=== PATIENT | female | born 1995 | race Caucasian/White ===

== ENCOUNTER → 2017-05-29 12:26 | Outpatient (CLI) | payer OTHER, SELFPAY ==
[2017-05-29 13:51] LABS: HCG Qualitative, Serum Positive (Negative)
== END ==
PROVIDERS: PCP Family Medicine; Visit Provider Nurse Practitioner Obstetrics & Gynecology
DX: Z32.00 Encounter for pregnancy test, result unknown (principal)
CPT/HCPCS: 84703

== ENCOUNTER → 2017-06-05 15:19 | Outpatient (CLI) | payer OTHER, SELFPAY ==
[2017-06-05 15:42] LABS: Basophils % 0.4 % (0.1-2.0); Eosinophils # 0.2 K/mm3 (0.0-0.4); Eosinophils % 1.8 % (0.1-12.0); Hematocrit 37.7 % (37.0-47.0); Hemoglobin 12.5 g/dL (12.2-16.2); Lymphocytes # 2.1 K/mm3 (0.7-4.5); Lymphocytes % 23.4 K/mm3 (10-50); Mean Corpuscular Hemoglobin 28.2 pg (27.0-31.2); Mean Corpuscular Volume 85.4 fl (81-99); Mean Platelet Volume 7.5 fl (7.4-10.4); Monocytes # 0.4 K/mm3 (0.1-1.0); Monocytes % 4.7 % (1.7-9.3); Neutrophils # 6.3 K/mm3 (1.8-7.8); Neutrophils % 69.7 % (37.0-80.0); Platelet Count 286 K/mm3 (142-424); Red Blood Count 4.41 M/mm3 (4.20-5.40); Red Cell Distribution Width 12.6 % (11.5-17.5)
[2017-06-07 09:20] LABS: HIV Screen 4th Generation wRfx Non Reactive (Non Reactive)
[2017-06-09 12:02] LABS: Hepatitis B Surface Antigen Negative (Negative); Hepatitis C Antibody <0.1 s/co ratio (0.0-0.9); Rapid Plasma Reagin Ab Titer Non Reactive (NonRea<1:1); Rubella Antibodies, IgG 4.17 index (Immune >0.99)
== END ==
PROVIDERS: PCP Family Medicine; Visit Provider Nurse Practitioner Obstetrics & Gynecology
DX: Z34.90 Encounter for supervision of normal pregnancy, unspecified, unspecified trimester (principal)
CPT/HCPCS: 36415; 85025; 86592; 86703; 86762; 86850; 87340; 87380; G0432

== ENCOUNTER → 2017-06-13 10:18 | Outpatient (CLI) | payer OTHER, SELFPAY ==
--- NOTE | 2017-06-13 10:23 | US_ITS ---
US OB transvaginal HISTORY: ITS.REASON: US OB- Dates ORDERING PHYSICIAN: Sheldon Gill MD PATIENT AGE: 22 years COMPARISON: None FINDINGS: There is an intrauterine gestational sac present. A yolk sac is present. A definite pole is not identified. Cannot confirm viability at this time. Follow-up recommended as well as correlation with serial beta hCGs. There is a curvilinear area of decreased echogenicity along the left aspect of the uterus and could be due to an area of subchorionic bleed. There is a 2 cm left corpus luteum cyst and there are small follicles of the right ovary. IMPRESSION: 1. Intrauterine gestational sac with yolk sac. No obvious pole. This may be too early to see a pole however, cannot confirm viability. Recommend follow-up ultrasound as well as serial beta hCGs. 2. Possible small area of subchorionic bleed along the left aspect of the uterus. Follow-up recommended. An additional abnormal appearing gestational sac is also a consideration.
== END ==
PROVIDERS: PCP Family Medicine; Visit Provider Nurse Practitioner Obstetrics & Gynecology
DX: O26.841 Uterine size-date discrepancy, first trimester (principal)
CPT/HCPCS: 76830

== ENCOUNTER → 2017-06-26 13:19 | Outpatient (CLI) | payer OTHER, SELFPAY ==
--- NOTE | 2017-06-26 13:22 | US_ITS ---
US OB transvaginal HISTORY: ITS.REASON: Repeat US for Dates ORDERING PHYSICIAN: Sheldon Gill MD PATIENT AGE: 22 years COMPARISON: None FINDINGS: An intrauterine gestational sac is present with a pole with a crown-rump length of 0.98cm correlating to gestational age of 7w1d. heart tones are present with an FHR of 146 bpm's. Yolk sac is noted. There is a 2 cm left corpus luteum cyst. IMPRESSION: Live intrauterine gestation at 7 weeks 1 day. Estimated due date by ultrasound is 02/11/2018. Previously noted crescentic area of decreased echogenicity along the lower uterine segment is not demonstrated on today's exam
== END ==
PROVIDERS: PCP Family Medicine; Visit Provider Nurse Practitioner Obstetrics & Gynecology
DX: O26.841 Uterine size-date discrepancy, first trimester (principal)
CPT/HCPCS: 76830

== ENCOUNTER → 2017-09-22 13:00 | Outpatient (CLI) | payer OTHER, SELFPAY ==
--- NOTE | 2017-09-22 13:01 | US_ITS ---
US OB /maternal detail: INDICATION: ITS.REASON: US OB Complete ORDERING PHYSICIAN: Sheldon Gill MD PATIENT AGE: 22 years TECHNIQUE: ultrasound transabdominal scanning. COMPARISON: No previous relevant studies. FINDINGS: Single viable intrauterine gestation. Cephalic position. Placenta: Anterior and fundal placenta grade 1.. There is increased echogenicity along the posterior aspect of the uterine wall anteriorly may be related to [place] contraction versus accessory lobe of the placenta There is average amount fluid. The cervix appears satisfactory. Closed and measuring 4 cm in length. Complete survey performed and was unremarkable on the submitted images as in PACS. No discrete anomalies identified on survey imaging by technologist. Active fetus. Three-vessel cord with satisfactory umbilical cord insertion. 4- chamber heart noted. Survey of brain & ventricles unremarkable. Face and neck survey unremarkable. Diaphragm and chest views unremarkable. Abdomen: Both kidneys noted and unremarkable. Stomach noted and satisfactory. Spine: Survey of the spine satisfactory with no anomalies identified nor imaged. Both arms and legs noted. Amniotic Fluid: Adequate. Maternal adnexa: No significant findings. Measurements: Average ultrasound age 20w1d. Gestational Age 19w5d. Estimated due date by ultrasound age 1002/08/2018. Estimated weight 344 grams. 78 percentile based on LMP BPD = 20w0d OFD = 20w4d HC = 19w4d AC = 20w4d FL = 20w3d Heart Rate = 152 bpm Cerebellum = 19w6d Humerus = HC/AC is 1.11 (1.09-1.26). CI is 76% (70-86%). FL/BPD is 72%. FL/AC is 22%. IMPRESSION: Single live intrauterine gestation with an average ultrasound age of 20 weeks and 1 day in cephalic presentation. heart and body motion noted. No obvious anomalies. All parameters correlate Please see above for detail.
== END ==
PROVIDERS: PCP Family Medicine; Visit Provider Nurse Practitioner Obstetrics & Gynecology
DX: Z36.0 Encounter for antenatal screening for chromosomal anomalies (principal)
CPT/HCPCS: 76811

== ENCOUNTER 2018-01-02 18:46 | Outpatient (CLI) | payer OTHER, SELFPAY ==
[2018-01-02 19:40] VITALS: BP 126/62; PULSE 108; RESP 16; TEMP 36.9; O2SAT 100; BMI 34.7
[2018-01-02 19:45] LABS: Microscopic, Urine URINE MICROSCOPIC (MICROSCOPIC)
[2018-01-02 19:48] LABS: Appearance,Urine CLEAR (Clear); Bilirubin,Urine Negative (Negative); Blood, Urine Negative (Negative); Color,Urine DK YELLOW (Yellow); Glucose,Urine (UA) Negative (Negative); Ketones,Urine 1+ (Negative); Leukocyte Esterase,Urine 1+ (Negative); Nitrate,Urine Negative (Negative); Protein,Urine TRACE (Negative); Specific Gravity, Urine >= 1.030 (1.005-1.030); Urobilinogen,Urine 0.2 EU/dl (0.2)
[2018-01-02 19:56] LABS: Bacteria,Urine 2+ /lpf; Mucus,Urine 4+ /lpf; Squamous Epithelial Cell,Urine TNTC #/hpf (0-5); WBC,Urine 20-50 #/hpf (0-3)
[2018-01-02 20:45] LABS: Fetal Fibronectin (Rapid) Negative (Negative)
== END 2018-01-02 22:10 | disposition home or self-care (01) ==
LOC: OBOUT 18:49 → OB 18:50
PROVIDERS: PCP Nurse Practitioner Obstetrics & Gynecology; Visit Provider Obstetrics & Gynecology
DX: O26.893 Other specified pregnancy related conditions, third trimester (principal); Z3A.34 34 weeks gestation of pregnancy; R10.9 Unspecified abdominal pain; R42 Dizziness and giddiness
CPT/HCPCS: 59025; 81001; 82731; 87086; 96360; 96372

== ENCOUNTER → 2018-01-08 16:45 | Outpatient (REF) | payer OTHER, SELFPAY | LOC: LAB 16:45 | PROVIDERS: Visit Provider Nurse Practitioner Obstetrics & Gynecology | DX: Z34.90 Encounter for supervision of normal pregnancy, unspecified, unspecified trimester (principal) | CPT/HCPCS: 86403 ==

== ENCOUNTER 2018-01-12 08:11 | Outpatient (CLI) | payer OTHER, SELFPAY ==
--- NOTE | 2018-01-12 08:14 | US_ITS ---
US OB biophysical profile: Umbilical artery Doppler with SD ratio Indication: ITS.REASON: US OB BPP and GROWTH for SGA ORDERING PHYSICIAN: Sheldon Gill MD PATIENT AGE: 22 years FINDINGS: There is a single live fetus which is in the cephalic presentation. heart rate is 1 43 bpm The following parameters are obtained: Average ultrasound age is 36w3d. Estimated due date by ultrasound is 02/06/2018. Estimated weight is 2826 grams. This is 59th percentile. BPD: 37w1d OFD: 37w4d HC: 36w3d AC: 35w3d FL: 36w5d heart rate: 143 bpm. HC/AC: 1.02 (0.93-1.11) Cephalic index: 81% (70-96%) FL/BPD: 78% (71-87%) FL/AC: 23% (20-24%) Amniotic fluid index: 12 cm Qualitative AFV: 2 breathing movements: 2 Gross body movements: 2 Tone: 2 Biophysical profile score: 8/8 Doppler evaluation of the umbilical artery: SD ratio: 2.7 Resistive index: 0.63 No obvious anomalies evident. Placenta: Grade 1 Cervix: Appears closed IMPRESSION: Live intrauterine gestation which is in cephalic presentation with an average ultrasound age of 36 weeks 3 days. All parameters correlate. No obvious anomalies. Estimated due date by ultrasound is 02/06/2018. Estimated weight is 2826 g which is 59th percentile based on the established due date of 02/11/2018. Biophysical profile is 8 of 8. Unremarkable Doppler evaluation of the umbilical artery.
[2018-01-12 09:32] VITALS: BMI 35.2
[2018-01-12 09:35] VITALS: BP 133/80; PULSE 105; RESP 20; TEMP 36.7; O2SAT 100; BMI 35.2
[2018-01-12 09:39] LABS: Microscopic, Urine URINE MICROSCOPIC (MICROSCOPIC)
[2018-01-12 09:41] LABS: Appearance,Urine CLEAR (Clear); Bilirubin,Urine Negative (Negative); Blood, Urine Negative (Negative); Color,Urine YELLOW (Yellow); Glucose,Urine (UA) Negative (Negative); Ketones,Urine 2+ (Negative); Leukocyte Esterase,Urine 2+ (Negative); Nitrate,Urine Negative (Negative); Protein,Urine Negative (Negative); Specific Gravity, Urine 1.015 (1.005-1.030); Urobilinogen,Urine 0.2 EU/dl (0.2)
[2018-01-12 09:59] LABS: Bacteria,Urine 1+ /lpf
--- NOTE | 2018-01-12 10:36 | P.PN_ITS ---
Internal Medicine - PN: Subj *Date: 01/12/18 *Time: 10:34 Interval history: She is a 22-year-old 3 para 2 who is 35+ weeks gestational age. She was having an ultrasound and it was seen at the time of her ultrasound that she is having a few contractions. As result that she was sent to labor and delivery for nonstress test. She is having contractions about every 6 minutes. They are mild and she only feels mild tightening. Her cervix has remained unchanged and is 2 cm 50% and station -3. The nonstress test is reactive. We will plan to give her a 1 L bolus of IV fluids. If her contractions settle then we will send her on her way home. She has an appointment with me gregoria myers Exam Vital signs and Labs for Last 24 Hours: Temp Pulse Resp BP Pulse Ox 98.0 F 105 H 20 133/80 100 01/12/18 09:35 01/12/18 09:35 01/12/18 09:35 01/12/18 09:35 01/12/18 09:35 Laboratory Results - last 24 hr 01/12/18 09:30: Urine Color Yellow, Urine Appearance Clear, Urine pH 6.0, Ur Specific [place] 1.015, Urine Protein Negative, Urine Glucose (UA) Negative, Urine Ketones 2+, Urine Blood Negative, Urine Nitrate Negative, Urine Bilirubin Negative, Urine Urobilinogen 0.2, Ur Leukocyte Esterase 2+ A, Urine RBC None, Urine WBC 10-20, Ur Squamous Epith Cells 10-20, Urine Bacteria 1+ I & O for Last 24 hours: Intake & Output 01/09/18 01/10/18 01/11/18 01/12/18 11:59 11:59 11:59 11:59 Weight 192 lb 4 oz - Constitutional no acute distress - *Routine HEENT Exam Head: Present: normocephalic Eye: Present: EOMI, PERRL ENT: Present: mucous membranes moist Assessment and Plan (1) False labor before 37 completed weeks of gestation Current visit: Yes Status: Acute Category: Medical Code(s): O47.00 - False labor before 37 completed weeks of gestation, unspecified trimester - Assessment and plan all Dx Assessment and Plan for all problems:: We will continue with observation and give her a liter of fluid. If her contractions settled we will send her on her way home.
== END 2018-01-12 11:20 | disposition home or self-care (01) ==
LOC: RAD 09:20 → OB 09:21
PROVIDERS: PCP Family Medicine; Visit Provider Nurse Practitioner Obstetrics & Gynecology
DX: O36.5990 Maternal care for other known or suspected poor fetal growth, unspecified trimester, not applicable or unspecified (principal)
CPT/HCPCS: 59025; 76819; 81001; 87086; 96360

== ENCOUNTER 2018-01-27 18:19 | Inpatient (IN) ==
[2018-01-27 18:44] VITALS: BP 125/85
[2018-01-27 18:56] LABS: Microscopic, Urine URINE MICROSCOPIC (MICROSCOPIC)
[2018-01-27 19:00] LABS: Appearance,Urine CLEAR (Clear); Bilirubin,Urine Negative (Negative); Blood, Urine Negative (Negative); Color,Urine YELLOW (Yellow); Glucose,Urine (UA) Negative (Negative); Ketones,Urine 2+ (Negative); Leukocyte Esterase,Urine Negative (Negative); PH,Urine 7.5 (5.0-8.5); Protein,Urine TRACE (Negative); Specific Gravity, Urine 1.025 (1.005-1.030)
[2018-01-27 19:02] LABS: Mucus,Urine 4+ /lpf
--- NOTE | 2018-01-27 19:58 | History & Physical Report ---
OB - H&P: HPI Antepartum - History of Present Illness Chief complaint: Contractions History of present illness: She is a 22-year-old 3 para 2 at 38+ weeks gestational age. She came in in active labor having regular contractions. She was found to be 4-5 cm dilated with a bulging bag of water. She thought she had ruptured her membranes but this was negative. As result of the regular contractions and the fact that she is 5 cm we will go ahead and admit her for delivery. - History of Present Criteria for establishing EDC:: LMP confirmed by 1st trimester US care: good care Ultrasounds: normal 1st trimester US, normal mid trimester US Obstetrical complications: none Medical complications: none [facility] History I have reviewed the patient's past medical history: Yes Medical History: Denies:: Anxiety, Asthma, Cancer, Depression, Diabetes Mellitus Type 1, Narcisa betes Mellitus Type 2, Hypertension, MRSA Other Surgeries: No: Amputation: No Fractures: No - *Social History Smoking Status: Never smoker Alcohol Intake: never Substance Use Type: denies use - Psychiatric History Pschychiatric History:: Denies:: Anxiety, Depression *Family Hx:: No significant family history Para: 2 Review of Systems - Review of Systems Review of systems:: pertinent systems reviewed and negative unless documented below Meds Home Medications Medication Instructions Recorded Confirmed Type 1 tab PO QHS 06/05/17 01/27/18 History vitamin,calcium,opnynmpx-sirg-ihuuq acid tablet ferrous sulfate 325 mg (65 mg 325 mg PO DAILY 11/23/17 01/27/18 History iron) tablet,delayed release Allergies Allergy/AdvReac Type Severity Reaction Status Date / Time No Known Allergies Allergy Verified 01/24/18 16:40 OB - H&P: Exam - Physical Exam Vital signs: Temp Pulse Resp BP Pulse Ox 98.4 F 111 H 20 125/85 100 01/27/18 18:40 01/27/18 18:40 01/27/18 18:40 01/27/18 18:40 01/27/18 18:40 - Constitutional no acute distress - Routine HEENT Exam Head: Present: normocephalic Eye: Present: EOMI, PERRL ENT: Present: mucous membranes moist - Routine Neck Exam Present: supple, full ROM - Routine Respiratory Exam Absent: accessory muscle use (good air entry bilaterally), respiratory distress, wheezes, crackles - Routine Cardiovascular Exam Present: RRR. Absent: murmur - Routine Abdominal Exam Present: soft, normoactive bowel sounds. Absent: tenderness, distended, guarding - Routine Rectal Exam Patient deferred: visual exam, digital exam - Routine Exam Patient deferred: external exam, groin exam, perineal exam - Routine Extremities Exam Present: full ROM. Absent: cyanosis, edema - Routine Skin Exam Present: intact. Absent: cyanosis - Routine Neurological Exam Present: alert, oriented X3 - Routine Psychiatric Exam Present: normal affect OB - Results - Labs Labs: Urine 01/27/18 Range/Units 18:30 Urine Color Yellow (Yellow) Urine Appearance Clear (Clear) Urine pH 7.5 (5.0-8.5) Ur Specific [place] 1.025 (1.005-1.030) Urine Protein Trace (Negative) Urine Glucose (UA) Negative (Negative) OB - A/P Antepartum (1) Normal delivery at term Current visit: Yes Status: Acute - Additional Plan Planning to breastfeed?: Yes Plan: expectant management Additional Information:: I have ruptured her membranes and inserted an IUPC. She is 5 cm dilated station -2 and 80% effaced. There is clear copious fluid. Stress test is reactive. She is having contractions every 2 minutes.
[2018-01-27 20:01] LABS: Basophils % 0.2 % (0.1-2.0); Eosinophils # 0.1 K/mm3 (0.0-0.4); Eosinophils % 0.8 % (0.1-12.0); Hematocrit 34.5 % (37.0-47.0); Hemoglobin 11.2 g/dL (12.2-16.2); Lymphocytes % 20.4 K/mm3 (10-50); Mean Corpuscular HGB Conc 32.3 g/dL (31.8-35.4); Mean Corpuscular Hemoglobin 27.9 pg (27.0-31.2); Mean Corpuscular Volume 86.3 fl (81-99); Monocytes # 0.6 K/mm3 (0.1-1.0); Monocytes % 5.8 % (1.7-9.3); Neutrophils # 7.1 K/mm3 (1.8-7.8); Neutrophils % 72.8 % (37.0-80.0); Platelet Count 234 K/mm3 (142-424); Red Cell Distribution Width 13.4 % (11.5-17.5); White Blood Count 9.8 K/mm3 (4.5-13.0)
--- NOTE | 2018-01-27 23:07 | Progress Note ---
[facility] Anesthesia Checklist - Patient Identification Patient Identification: Arm Band, Verbal (Name & ) - Structural Data Admitted From: Inpatient Planned Operative Procedure/s: labour epidural Consent for Planned Operative Procedure(s) Verified: Yes Verified Documents: Surgical Consent, History and Physical - Additional verifications Patient : Yes Anesthesia Reactions: No Hx Blood Transfusions: No Blood Transfusion Reaction: No Cephalosporin Allergy: No Previous Colonoscopy: No - Cardiovascular Assessment Heart Sounds: S1 & S2 Pulse Strength: Baseline Pulse Rhythm: Regular Peripheral Edema: No - Airway Assessment C-Spine Mobility Assessed: Yes TMJ Mobility Assessed: Yes Dentition: Good Dentition - Neurological Assessment Level of Consciousness: Awake, Alert, Appropriate Hx Seizures: No Numbness or tingling in extremities: No - Anesthesia Plan Anesthesia Risk discussed: Yes Anesthesia Plan: Verified ASA Class: II Anesthesia Type: Epidural [facility] History I have reviewed the patient's past medical history: Yes Medical History: Denies:: Anxiety, Asthma, Cancer, Depression, Diabetes Mellitus Type 1, Diabetes Mellitus Type 2, Hypertension, MRSA Other Surgeries: Yes: No Previous Surgery. No: Amputation: No Fractures: No - *Social History Smoking Status: Never smoker Alcohol Intake: never Substance Use Type: denies use - Psychiatric History Pschychiatric History:: Denies:: Anxiety, Depression *Family Hx:: No significant family history Para: 2
--- NOTE | 2018-01-27 23:23 | Procedure Note ---
- Delivery Note Delivery Date:: 01/27/18 Delivery Time:: 23:10 Anesthesia Type: Epidural Was labor medically induced?: No Infant delivered prior to 39 weeks?: Yes Justification for early elective delivery:: Active Labor Infant Gender: Male at 1 minute: 8 at 5 minutes: 9 AF:: Clear fluid Delivery Procedure:: She is a 22-year-old 3 para 2 who came in in active labor. She was having regular contraction was found to be 4-5 cm dilated. As result of that we elected to rupture her membranes. She progressed under labor epidural to full dilation and delivered spontaneously a live born male child at 11:10 PM in the evening of January 27, 2018. On deliver the head it was noted that there was a loose nuchal cord which was easily reduced. This was followed by the rest of the infant's body atraumatically. The cord was clamped and cut and the was placed on the mother's abdomen for further care. The nurses assigned Apgars of 8 at 1 minute and 9 at 5 minutes. We then obtained cord blood. The baby was vigorous. The patient received IV oxytocin and using gentle traction on the cord and countertraction on the fundus I was able to easily deliver the placenta intact. Had a normal three-vessel cord. There were no perineal or vaginal lacerations. She has AB+ blood, she is rubella immune and was group B streptococcus negative. She plans to breast-feed. Her jewelry jobber is Dr. Villafuerte. Estimated blood loss was approximately 400 cc. Placental Delivery Description: Spontaneous
[2018-01-28 06:35] LABS: Hemoglobin 10.3 g/dL (12.2-16.2)
[2018-01-28 06:44] LABS: Hematocrit 28.8 % (37.0-47.0)
--- NOTE | 2018-01-28 12:04 | Progress Note ---
Internal Medicine - PN: Subj *Date: 01/28/18 *Time: 12:04 Interval history: She continues to do well. She is eating and drinking and ambulating. She is breast-feeding. Her lochia is normal. Exam Vital signs and Labs for Last 24 Hours: Temp Pulse Resp BP Pulse Ox 98.4 F 111 H 20 125/85 100 01/27/18 18:40 10 18:40 01/27/18 18:40 01/27/18 18:40 01/27/18 18:40 Laboratory Results - last 24 hr 01/27/18 18:30: Urine Color Yellow, Urine Appearance Clear, Urine pH 7.5, Ur Specific [place] 1.025, Urine Protein Trace, Urine Glucose (UA) Negative, Urine Ketones 2+, Urine Blood Negative, Urine Nitrate Negative, Urine Bilirubin Negative, Urine Urobilinogen 1.0, Ur Leukocyte Esterase Negative, Urine WBC 3-5, Ur Squamous Epith Cells 5-10, Urine Mucus 4+ 01/27/18 18:30: Membrane Rupture Negative 01/27/18 19:55: WBC 9.8, RBC 4.00 L, Hgb 11.2 L, Hct 34.5 L, MCV 86.3, MCH 27.9, MCHC 32.3, RDW 13.4, Plt Count 234, MPV 9.0, Neut % (Auto) 72.8, Lymph % (Auto) 20.4, [place] % (Auto) 5.8, Eos % (Auto) 0.8, Baso % (Auto) 0.2, Neut # (Auto) 7.1, Lymph # (Auto) 2.0, [place] # (Auto) 0.6, Eos # (Auto) 0.1, Baso # (Auto) 0.0 01/27/18 19:55: Blood Type AB Positive, Antibody Screen Negative 01/28/18 06:03: Hgb 10.3 L, Hct 28.8 L I & O for Last 24 hours: Intake & Output 01/26/18 01/27/18 01/28/18 01/29/18 11:59 11:59 11:59 11:59 Weight 191 lb - Constitutional no acute distress Assessment and Plan (1) Normal delivery at term Current visit: Yes Status: Acute Category: Medical Code(s): O80 - Encounter for full-term uncomplicated delivery - Assessment and plan all Dx Assessment and Plan for all problems:: She continues to do well. We will plan to send her home possibly tomorrow.
--- NOTE | 2018-01-29 09:25 | Discharge Summary ---
General - General Admission date:: 01/27/18 Discharge date: 01/29/18 HPI HPI: She continues to do well. She is eating and drinking and ambulating. She is breast-feeding. Her lochia is normal. Hospital Course Hospital Course: She is a 22-year-old 7 now para 3 aborta 4 who was 38 weeks gestational age. She came in in active labor. She subsequently dressed under labor epidural to full dilation and delivered spontaneously a live born male child at 11:10 PM on the evening of January 27, 2018. Baby had Apgars of 8 at 1 minute and 9 at 5 minutes. She has done well and has remained afebrile throughout her hospitalization. She is eating and drinking and ambulating. She is breast-feeding. She has AB+, she is rubella immune and was group B streptococcus negative. Tax Evaluator is Dr. Villafuerte. She is discharged home to follow-up with me in approximately 2 weeks time. She will continue with her vitamins and iron. She will continue with breast-feeding. Her condition on discharge is stable. Objective Vital signs: Temp Pulse Resp BP Pulse Ox 98.4 F 111 H 20 125/85 100 01/27/18 18:40 01/27/18 18:40 01/27/18 18:40 01/27/18 18:40 01/27/18 18:40 no acute distress DS: Diagnosis - Discharge Diagnosis (1) Normal delivery at term Status: Acute Discharge Plan - Patient Discharge Instructions ACTIVITY: No heavy lifting DIET: continue same diet - Follow up Plan Disposition: Home, Self-[facility] Medications: Home Medications Medication Instructions Recorded Confirmed Type 1 tab PO QHS 06/05/17 01/27/18 History vitamin,calcium,lhitfemk-orga-qyect acid tablet ferrous sulfate 325 mg (65 mg 325 mg PO DAILY 11/23/17 01/27/18 History iron) tablet,delayed release Prescriptions/Medication Reconciliation: Continue vitamin,calcium,xyxpaldb-gots-bdopq acid tablet 1 tab PO QHS No Action ferrous sulfate 325 mg (65 mg iron) tablet,delayed release 325 mg PO DAILY
== END 2018-01-29 15:55 | disposition home or self-care (01) ==
LOC: OBOUT 18:19 → OB 18:21
PROVIDERS: ADMIT Nurse Practitioner Obstetrics & Gynecology; ATTEND Nurse Practitioner Obstetrics & Gynecology

== ENCOUNTER → 2018-10-22 12:19 | Outpatient (CLI) | payer MEDICAID, SELFPAY ==
[2018-10-22 14:02] LABS: HCG,Quantitative 340 mIU/mL
== END ==
PROVIDERS: Visit Provider Nurse Practitioner Obstetrics & Gynecology
DX: Z32.00 Encounter for pregnancy test, result unknown (principal)
CPT/HCPCS: 36415; 84702

== ENCOUNTER → 2018-11-06 16:24 | Outpatient (CLI) | payer MEDICAID, SELFPAY ==
[2018-11-06 16:46] LABS: Basophils % 0.3 % (0.1-2.0); Eosinophils # 0.2 K/mm3 (0.0-0.4); Hematocrit 36.9 % (37.0-47.0); Hemoglobin 11.5 g/dL (12.2-16.2); Lymphocytes # 2.1 K/mm3 (0.7-4.5); Lymphocytes % 21.4 % (10-50); Mean Corpuscular HGB Conc 31.3 g/dL (31.8-35.4); Mean Corpuscular Hemoglobin 26.2 pg (27.0-31.2); Mean Corpuscular Volume 83.7 fl (81-99); Mean Platelet Volume 7.6 fl (7.4-10.4); Monocytes # 0.4 K/mm3 (0.1-1.0); Neutrophils % 72.3 % (37.0-80.0); Platelet Count 277 K/mm3 (142-424); Red Cell Distribution Width 12.6 % (11.5-17.5); White Blood Count 9.6 K/mm3 (4.8-10.8)
[2018-11-08 22:04] LABS: HIV Screen 4th Generation wRfx Non Reactive (Non Reactive); Hepatitis B Surface Antigen Negative (Negative); Hepatitis C Antibody <0.1 s/co ratio (0.0-0.9); Rapid Plasma Reagin Ab Titer Non Reactive (NonRea<1:1); Rubella Antibodies, IgG 3.32 index (Immune >0.99)
== END ==
PROVIDERS: Visit Provider Nurse Practitioner Obstetrics & Gynecology
DX: Z34.90 Encounter for supervision of normal pregnancy, unspecified, unspecified trimester (principal)
CPT/HCPCS: 36415; 85025; 86592; 86703; 86762; 86850; 87340; 87380; G0432

== ENCOUNTER → 2018-11-09 13:38 | Outpatient (CLI) | payer MEDICAID, SELFPAY ==
--- NOTE | 2018-11-09 13:40 | US_ITS ---
US OB transvaginal HISTORY: ITS.REASON: US OB Dates ORDERING PHYSICIAN: Sheldon Gill MD PATIENT AGE: 23 years COMPARISON: None FINDINGS: The uterus is retroverted An intrauterine gestational sac is present with a pole with a crown-rump length of 0.81correlating to gestational age of [id number] heart tones are present with an FHR of 149pm's. Yolk sac is noted. Adnexa: 1.5 cm left ovarian cyst. IMPRESSION: Live intrauterine gestation at 6 weeks 6 days as described above. Estimated due date by Ultrasound is 06/29/2019
== END ==
PROVIDERS: PCP Family Medicine; Visit Provider Nurse Practitioner Obstetrics & Gynecology
DX: O26.841 Uterine size-date discrepancy, first trimester (principal)
CPT/HCPCS: 76817

== ENCOUNTER → 2019-02-14 10:24 | Outpatient (CLI) | payer OTHER, SELFPAY ==
--- NOTE | 2019-02-14 10:25 | US_ITS ---
PROCEDURE: US OB /MATERNAL DETAIL CLINICAL INDICATION: 20 wk + Anatomy Scan-US OB COMPLETE COMPARISON: OBTV US OB transvaginal from 11/09/2018 FINDINGS: Single viable intrauterine gestation. Cephalic position. Placenta: Posteriorplacenta grade 1. There is average amount fluid. The cervix appears satisfactory. Closed and measuring 3 cm in length. Complete survey performed and was unremarkable on the submitted images as in PACS. No discrete anomalies identified on survey imaging by technologist. Active fetus. Three-vessel cord with satisfactory umbilical cord insertion. 4- chamber heart noted. Survey of brain & ventricles Unremarkable. Face and neck survey unremarkable. Diaphragm and chest views unremarkable. Abdomen: Both kidneys noted and unremarkable. Stomach noted and satisfactory. Spine: Survey of the spine satisfactory with no anomalies identified nor imaged. Both arms and legs noted. Amniotic Fluid: Adequate. Maternal adnexa: No significant findings. Measurements: Average ultrasound age 20 weeks 5 D. Gestational Age 20 weeks 5 D Estimated due date by ultrasound age 0306/29/2019. Estimated weight 362.3 ggrams. BPD = 21 weeks 1 day OFD = 21 weeks 0 D HC = 20 weeks 2D AC = 21 weeks 0 D FL = 20 weeks 2 D Growth Percentile= 37 percent% Heart Rate = 155 bpm Cerebellum = 19 weeks 5 D Humerus = 20 weeks 5D HC/AC is 1.13 CI is 0.79 FL/BPD is 0.66 FL/AC is 0.21 IMPRESSION: There is a live intrauterine gestation with an average ultrasound age of 20 weeks and 5 days. All parameters correlate with no obvious anomalies. Please see above for detail Dictated by: Elio Chacko MD 02/14/2019 17:51 Electronically signed by Elio Chacko MD in [place] 02/14/2019 17:51
== END ==
PROVIDERS: PCP Family Medicine; Visit Provider Nurse Practitioner Obstetrics & Gynecology
DX: Z36.0 Encounter for antenatal screening for chromosomal anomalies (principal)
CPT/HCPCS: 76811

== ENCOUNTER → 2019-03-28 08:42 | Outpatient (CLI) | payer OTHER, SELFPAY ==
[2019-03-28 09:15] LABS: Glucose,Fasting 84 mg/dL (60-105)
[2019-03-28 11:09] LABS: Glucose 1 Hour 73 mg/dL (74-106)
== END ==
PROVIDERS: Visit Provider Nurse Practitioner Obstetrics & Gynecology
DX: Z34.90 Encounter for supervision of normal pregnancy, unspecified, unspecified trimester (principal)
CPT/HCPCS: 36415; 82951

== ENCOUNTER → 2019-05-30 16:29 | Outpatient (CLI) | payer OTHER, SELFPAY | PROVIDERS: Visit Provider Nurse Practitioner Obstetrics & Gynecology | DX: Z34.90 Encounter for supervision of normal pregnancy, unspecified, unspecified trimester (principal) | CPT/HCPCS: 86403 ==

== ENCOUNTER 2019-05-31 10:02 | Outpatient (CLI) | payer OTHER, SELFPAY ==
[2019-05-31 10:15] VITALS: RESP 20; TEMP 36.8; BMI 35.9
[2019-05-31 10:39] LABS: Microscopic, Urine URINE MICROSCOPIC (MICROSCOPIC)
[2019-05-31 10:41] LABS: Appearance,Urine CLEAR (Clear); Bilirubin,Urine Negative (Negative); Blood, Urine Negative (Negative); Color,Urine YELLOW (Yellow); Glucose,Urine (UA) Negative (Negative); Ketones,Urine Negative (Negative); Leukocyte Esterase,Urine 2+ (Negative); Nitrate,Urine Negative (Negative); PH,Urine 5.5 (5.0-8.5); Protein,Urine Negative (Negative); Specific Gravity, Urine 1.025 (1.005-1.030); Urobilinogen,Urine 0.2 EU/dl (0.2)
[2019-05-31 10:47] LABS: Amphetamine/Metha Screen,Urine Negative ng/mL (<1000); Barbiturates Screen,Urine Negative ng/mL (<200); Benzodiazepines Screen,Urine Negative ng/mL (<200); Cannabinoid Screen,Urine Negative ng/mL (<50); Cocaine Screen,Urine Negative ng/mL (<300); Methadone Screen,Urine Negative ng/mL (<300); Opiate Screen,Urine Negative ng/mL (<300); Phencyclidine Screen,Urine Negative ng/mL (<25)
[2019-05-31 10:52] LABS: Bacteria,Urine 2+ /lpf; RBC,Urine Occasional #/hpf (0-3)
[2019-05-31 12:41] LABS: Basophils % 0.2 % (0.1-2.0); Eosinophils # 0.1 K/mm3 (0.0-0.4); Eosinophils % 0.5 % (0.1-12.0); Hematocrit 36.3 % (37.0-47.0); Hemoglobin 11.2 g/dL (12.2-16.2); Lymphocytes # 1.6 K/mm3 (0.7-4.5); Mean Corpuscular HGB Conc 30.8 g/dL (31.8-35.4); Mean Corpuscular Hemoglobin 26.4 pg (27.0-31.2); Mean Corpuscular Volume 85.7 fl (81-99); Mean Platelet Volume 9.3 fl (7.4-10.4); Monocytes # 0.4 K/mm3 (0.1-1.0); Monocytes % 3.9 % (1.7-9.3); Neutrophils # 7.6 K/mm3 (1.8-7.8); Neutrophils % 78.4 % (37.0-80.0); Platelet Count 243 K/mm3 (142-424); Red Blood Count 4.23 M/mm3 (4.20-5.40); Red Cell Distribution Width 13.7 % (11.5-17.5); White Blood Count 9.7 K/mm3 (4.8-10.8)
[2019-05-31 13:03] LABS: D-Dimer 667 ng/mL (0-400)
[2019-05-31 13:25] LABS: Activated Partial Thrombo Time 27.5 seconds (23.6-34.0); Fibrinogen 498 mg/dL (204-500); INR 0.95 (0.9-1.1); Prothrombin Time 9.9 seconds (9.4-11.8)
[2019-05-31 13:35] LABS: Alanine Aminotransferase 12 U/L (12-78); Anion Gap 13.8 mEq/L (5-15); Aspartate Amino Transferase 11 U/L (15-37); Blood Urea Nitrogen 11 mg/dL (7-18); Calcium 8.9 mg/dL (8.5-10.1); Carbon Dioxide 23 mmol/L (21.0-32.0); Chloride 104 mmol/L (98-107); Creatinine Clearance Estimated 186 mL/min (50-200); Creatinine,Serum 0.69 mg/dL (0.55-1.02); Estimated Glomerular Filt Rate 106 ml/min (>60); GFR (African American) 129 ML/MIN (>60); Glucose 90 mg/dL (74-106); Potassium 3.8 mmoL/L (3.5-5.1); Sodium 137 mmol/L (136-145); Uric Acid 4.3 mg/dL (2.6-7.2)
== END 2019-05-31 13:05 | disposition home or self-care (01) ==
LOC: OBOUT 10:04 → OB 10:05
PROVIDERS: PCP Family Medicine; Visit Provider Nurse Practitioner Obstetrics & Gynecology
DX: O16.3 Unspecified maternal hypertension, third trimester (principal); Z3A.35 35 weeks gestation of pregnancy; R51 Headache; R42 Dizziness and giddiness
CPT/HCPCS: 59025; 80048; 80305; 81001; 84450; 84460; 84550; 85025; 85378; 85384; 85610; 85730; 87086; G0463

== ENCOUNTER → 2019-06-04 14:16 | Outpatient (CLI) | payer OTHER, SELFPAY ==
--- NOTE | 2019-06-04 14:17 | US_ITS ---
PROCEDURE: US OB FOLLOW UP CLINICAL INDICATION: SGA COMPARISON: US OB /MATERNAL DETAIL from 02/14/2019 FINDINGS: There is a single live fetus present which is in cephalic presentation. heart and body and practice breathing motion noted. The cervix is closed and measures 3.4 cm. Placenta is posterior and grade 2. Amniotic fluid index is normal at 17 cm. Biophysical profile is 8 of 8. Average ultrasound age is 35 weeks and 3 days. Estimated weight is 2652 g which is 25th percentile. All parameters correlate. BPD is 35 weeks 3 days, OFD 35 weeks 3 days, HC 35 weeks 0 days, AC 35 weeks 3 days, FL 35 weeks 3 days IMPRESSION: Live IUP in cephalic presentation at 35 weeks 3 days with an estimated weight 2652 g which is 25th percentile. Normal amniotic fluid index. Biophysical profile 8 of 8 Dictated by: Elio Chacko MD 06/04/2019 17:34 Electronically signed by Elio Chacko MD in [facility] 06/04/2019 17:34
== END ==
PROVIDERS: PCP Family Medicine; Visit Provider Nurse Practitioner Obstetrics & Gynecology
DX: O36.5131 Maternal care for known or suspected placental insufficiency, third trimester, fetus 1 (principal)
CPT/HCPCS: 76816; 76819

== ENCOUNTER 2019-06-06 19:39 | Outpatient (CLI) | payer OTHER, SELFPAY ==
[2019-06-06 19:46] VITALS: BMI 37.3
[2019-06-06 20:08] VITALS: BP 135/87; PULSE 118; RESP 18; TEMP 36.9; O2SAT 98; BMI 37.3
[2019-06-06 20:30] LABS: Microscopic, Urine URINE MICROSCOPIC (MICROSCOPIC)
[2019-06-06 20:37] LABS: Appearance,Urine CLEAR (Clear); Bilirubin,Urine Negative (Negative); Blood, Urine Negative (Negative); Color,Urine YELLOW (Yellow); Glucose,Urine (UA) TRACE (Negative); Ketones,Urine TRACE (Negative); Leukocyte Esterase,Urine Negative (Negative); Nitrate,Urine Negative (Negative); PH,Urine 6.5 (5.0-8.5); Protein,Urine TRACE (Negative); Specific Gravity, Urine >= 1.030 (1.005-1.030); Urobilinogen,Urine 0.2 EU/dl (0.2)
[2019-06-06 20:45] LABS: Amphetamine/Metha Screen,Urine Negative ng/mL (<1000); Barbiturates Screen,Urine Negative ng/mL (<200); Benzodiazepines Screen,Urine Negative ng/mL (<200); Cannabinoid Screen,Urine Negative ng/mL (<50); Cocaine Screen,Urine Negative ng/mL (<300); Methadone Screen,Urine Negative ng/mL (<300); Opiate Screen,Urine Negative ng/mL (<300); Phencyclidine Screen,Urine Negative ng/mL (<25)
[2019-06-06 20:47] LABS: Fetal Membrane Rupture (Rapid) Negative (Negative)
[2019-06-06 20:48] LABS: Bacteria,Urine Trace /lpf; WBC,Urine Occasional #/hpf (0-3)
== END 2019-06-06 22:40 | disposition home or self-care (01) ==
LOC: OBOUT 19:42 → OB 19:43
PROVIDERS: PCP Nurse Practitioner Obstetrics & Gynecology; Visit Provider Obstetrics & Gynecology
DX: O47.03 False labor before 37 completed weeks of gestation, third trimester (principal); Z3A.36 36 weeks gestation of pregnancy
CPT/HCPCS: 59025; 80305; 81001; 84112; 96365; 96372; G0463

== ENCOUNTER 2019-06-15 22:43 | Inpatient (IN) ==
[2019-06-15 23:01] LABS: Microscopic, Urine URINE MICROSCOPIC (MICROSCOPIC)
[2019-06-15 23:04] LABS: Appearance,Urine SL CLOUDY (Clear); Bilirubin,Urine Negative (Negative); Blood, Urine TRACE-I (Negative); Color,Urine YELLOW (Yellow); Glucose,Urine (UA) Negative (Negative); Ketones,Urine TRACE (Negative); Leukocyte Esterase,Urine Negative (Negative); Protein,Urine TRACE (Negative); Specific Gravity, Urine >= 1.030 (1.005-1.030); Urobilinogen,Urine 0.2 EU/dl (0.2)
[2019-06-15 23:07] LABS: Amorphous Sediment,Urine Trace /lpf; Mucus,Urine 4+ /lpf
[2019-06-15 23:15] LABS: Amphetamine/Metha Screen,Urine Negative ng/ml (<1000); Barbiturates Screen,Urine Negative ng/ml (<200)
[2019-06-15 23:16] LABS: Benzodiazepines Screen,Urine Negative ng/ml (<200); Cannabinoid Screen,Urine Negative ng/ml (<50)
[2019-06-15 23:17] LABS: Cocaine Screen,Urine Negative ng/ml (<300)
[2019-06-15 23:18] LABS: Methadone Screen,Urine Negative ng/ml (<300); Opiate Screen,Urine Negative ng/ml (<300)
[2019-06-15 23:19] LABS: Phencyclidine Screen,Urine Negative ng/ml (<25)
[2019-06-16 00:10] LABS: Basophils % 0.2 % (0.1-2.0); Eosinophils # 0.1 K/mm3 (0.0-0.4); Eosinophils % 0.7 % (0.1-12.0); Hematocrit 35.2 % (37.0-47.0); Hemoglobin 11.4 g/dL (12.2-16.2); Lymphocytes % 19.4 % (10-50); Mean Corpuscular HGB Conc 32.3 g/dL (31.8-35.4); Mean Corpuscular Volume 84.7 fl (81-99); Mean Platelet Volume 9.6 fl (7.4-10.4); Monocytes # 0.5 K/mm3 (0.1-1.0); Monocytes % 4.6 % (1.7-9.3); Neutrophils # 7.6 K/mm3 (1.8-7.8); Neutrophils % 75.2 % (37.0-80.0); Platelet Count 263 K/mm3 (142-424); Red Blood Count 4.16 M/mm3 (4.20-5.40); Red Cell Distribution Width 13.2 % (11.5-17.5); White Blood Count 10.2 K/mm3 (4.8-10.8)
--- NOTE | 2019-06-16 01:44 | Procedure Note ---
- Delivery Note Delivery Date:: 06/16/19 Delivery Time:: 01:18 Anesthesia Type: None Was labor medically induced?: No Infant delivered prior to 39 weeks?: Yes Justification for early elective delivery:: Active Labor at 1 minute: 7 at 5 minutes: 9 Delivery Procedure:: Patient presented with SROM and had rapid progress from 3cm to 8cm She was admitted and had precipitous spontaneous vaginal delivery of liveborn infant over intact perineum, with nursing staff attending delivery Delivery uncomplicated No nuchal cord or shoulder dystocia with delivery taken to warmer immediately after umbilical cord clamped/cut, with standard nursing assessment performed Apgars: 7 & 9 Placenta spontaneously expressed (delivered by MD) and examined; noted to be complete/intact. Vulva, vagina, and cervix inspected; no lacerations present EBL: 300 cc All sponge/needle/instrument counts correct at conclusion of procedure Disposition: Mom/baby stable to recovery in LDRP Placental Delivery Description: Spontaneous
[2019-06-17 07:03] LABS: Hematocrit 30.7 % (37.0-47.0)
--- NOTE | 2019-06-17 09:50 | Progress Note ---
Internal Medicine - PN: Subj *Date: 06/17/19 *Time: 09:49 Interval history: She continues to do well. She is eating and drinking and ambulating. She is breast-feeding. Her lochia is normal. Exam Vital signs and Labs for Last 24 Hours: Temp Pulse Resp BP Pulse Ox 98.8 F 93 H 16 137/80 99 06/16/19 20:10 06/16/19 20:10 06/16/19 20:10 06/16/19 20:10 06/16/19 12:13 Laboratory Results - last 24 hr 06/17/19 06:45: Hgb 10.0 L, Hct 30.7 L I & O for Last 24 hours: Intake & Output 06/14/19 06/15/19 06/16/19 06/17/19 11:59 11:59 11:59 11:59 Weight 208 lb - Constitutional no acute distress - *Routine HEENT Exam Head: Present: normocephalic Eye: Present: EOMI, PERRL ENT: Present: mucous membranes moist Assessment and Plan (1) Normal delivery Current visit: Yes Status: Acute Category: Medical Code(s): O80 - Encounter for full-term uncomplicated delivery - Assessment and plan all Dx Assessment and Plan for all problems:: She is doing very well this morning. We will plan to send her home tomorrow.
--- NOTE | 2019-06-18 08:14 | Discharge Summary ---
General - General Admission date:: 06/16/19 Discharge date: 06/18/19 HPI HPI: She is a 24-year-old 8 now para 4 aborta 4 who was 38 1 weeks gestational age. She ruptured membranes at home and came in in active labor. Hospital Course Hospital Course: She had ruptured her membranes at home and rapidly progressed to full dilation. She delivered spontaneously a liveborn male child at 118 in the morning of June 16, 2019. The baby weighed 6 pounds 9 ounces and was 18-1/2 inches long. He had Apgars of 7 at 1 minute and 9 at 5 minutes. She has done well and has remained afebrile throughout her hospitalization. She is eating and drinking and ambulating. She is breast- feeding. She has AB positive blood, she is rubella immune and was group B streptococcus negative. Her cage maker is Dr. Nj. She is discharged home to follow-up with me in approximately 2 weeks time. She would like a Nexplanon for control at that time. Her condition on discharge is stable and improved. She is just taking ufnm-uxy-ulhtsik analgesics for discomfort. She will continue with her vitamins and iron. Rhogam Administration: Not Indicated Objective Vital signs: Temp Pulse Resp BP Pulse Ox 98.3 F 91 H 17 133/73 100 06/17/19 08:00 06/17/19 08:00 06/17/19 08:00 06/17/19 08:00 06/17/19 08:00 no acute distress DS: Diagnosis - Discharge Diagnosis (1) Normal delivery Status: Acute Discharge Plan - Patient Discharge Instructions ACTIVITY: No heavy lifting DIET: continue same diet Additional Instructions: FOLLOW-UP WITH DR. ROWE ON 07/01/19 AT 11:00 NO HEAVY LIFTING OR STRENUOUS ACTIVITY NOTHING IN VAGINA FOR 6 WEEKS Patient Instructions: Depression, Hemorrhage, [facility] Post Discharge Instructions - Follow up Plan Disposition: Home, Self-Retirement Medications: Home Medications Medication Instructions Recorded Confirmed Type prenat.vits,jing,biy-bhql-vzcty 1 tab PO HS 06/05/17 06/16/19 History Ferrous Sulfate [Ferrous Sulfate 325 mg PO DAILY 06/16/19 06/16/19 History 325mg Tablet] Labetalol HCl 200 mg PO BID 06/16/19 06/16/19 History Prescriptions/Medication Reconciliation: Continued prenat.vits,jing,esq-zanw-zxqrl 1 tab PO HS Ferrous Sulfate [Ferrous Sulfate 325mg Tablet] 325 mg PO DAILY Discontinued Labetalol HCl 200 mg PO BID - Problem Reconciliation Problems Reviewed?: Yes
[2019-06-18 08:16] VITALS: BP 131/86
== END 2019-06-18 10:00 | disposition home or self-care (01) | DRG 807 ==
LOC: OBOUT 22:43 → OB 22:45
PROVIDERS: ADMIT Obstetrics & Gynecology; ATTEND Obstetrics & Gynecology

== ENCOUNTER → 2019-12-12 14:52 | Outpatient (CLI) | payer OTHER, SELFPAY ==
[2019-12-13 15:46] LABS: Covid-19 Nasal PCR Sendout Lex Positive
== END ==
PROVIDERS: PCP Family Medicine; Visit Provider Nurse Practitioner Family
DX: Z20.828 Contact with and (suspected) exposure to other viral communicable diseases (principal); U07.1 COVID-19
CPT/HCPCS: U0004

== ENCOUNTER 2022-05-30 13:01 | Emergency (ER) | payer OTHER, SELFPAY ==
--- NOTE | 2022-05-30 13:45 | HMH.EDGENADL ---
Discharge Plan Disposition Patient Disposition: Home, Self-Care Prescriptions Prescriptions: No Action prenat.vits,jing,vsb-gmjs-vvkhb Tablet 1 tab PO DAILY Qty: 30 11RF duloxetine [Cymbalta] 60 mg capsule,delayed release(DR/EC) 60 mg PO DAILY Qty: 30 1RF Referrals Follow up/Referrals: Pallavi Slater PA [Primary Care Provider] - See instructions Activity Restrictions/Add. Instructions Additional Instructions/Restrictions: Your diagnosis today with acute sinus infection superimposed upon a migraine headache. Your sinus symptoms have been ongoing for 4 days and have no other signs of acute bacterial sinusitis. Which would include prolonged symptoms beyond 1 to 2 weeks ongoing purulent discharge or high fever. If any of these symptoms return or if your headache is severe and unrelenting or any other neurologic signs or symptoms such as altered mental status please return. Otherwise no indication for any antibiotics. You may take Tylenol or ibuprofen as needed but the migraine cocktail that you are given today should allow you to have resolution of your symptoms for several days. Return as needed Clinical Impressions Clinical Impression: Sinus headache, Headache, migraine Discharge ED Provider: hCai Burkett General Adult HPI General Chief complaint: Headache Stated complaint: sinus pressure headaches Time Seen by Provider: 05/30/22 13:45 History of Present Illness HPI narrative: Patient is a 27-year-old female presents with a headache. Patient states for the past several days she has had headache that is frontal in nature also over her left maxillary sinus. Patient denies any preceding URI. Patient denies any other infectious symptoms. States that today when she was crying that seems document of her left nose. Patient denies any meningismus. Patient denies any changes in vision or any other neurologic symptoms. Patient denies any fever. States that this is similar to migraines in the past but a little more severe. States that she has had increasing migraines recently. The only change that she can recall is a removal of her Nexplanon. No sudden component of this headache. No history of any clots. Reassessment 2:39 PM. Patient states her symptoms are completely resolved at this point. Neurologic exam remains normal. Medications have just been administered will allow her fluids to continue we will reassess in another 30 minutes to an hour at which point if she still feeling good we will let her go home. Related Data Previous Rx's Medication Instructions Recorded prenat.vits,jing,sfh-zqqj-fbvrz 1 tab PO DAILY #30 tabs 12/07/21 duloxetine 60 mg capsule,delayed 60 mg PO DAILY #30 caps 05/16/22 release (Cymbalta) Allergies Allergy/AdvReac Type Severity Reaction Status Date / Time No Known Allergies Allergy Verified 05/24/22 10:36 [facility] Disclaimer: The information contained in this section may have been updated after the patient was seen, as this information can be updated by other users. Medical History (Updated 05/30/22 @ 14:55 by Shiv Sadler MD) Acute carpal tunnel syndrome Attention deficit disorder (ADD) in adult Generalized anxiety disorder Surgical History (Updated 05/24/22 @ 10:38 by Yoly Castillo CMA) History of tonsillectomy Family History (Updated 05/24/22 @ 10:39 by Yoly Castillo CMA) Other Alcoholism Cancer Coronary artery disease Diabetes Hypertension Substance abuse Tuberculosis Social History Smoking Status: Never smoker alcohol intake: never substance use type: denies use current occupational status: employed Travel in the last 8 weeks: None number of children: 4 ROS Obtained: Yes All systems reviewed & no additional complaints except as documented Physical Exam General General appearance: alert and in no apparent distress Eye Eye exam: Present normal appearance and PE
[2022-05-30 13:52] VITALS: BP 120/97; PULSE 107; RESP 18; TEMP 37; O2SAT 100; BMI 40.2
--- NOTE | 2022-05-30 13:52 | PC.NURSE ---
1347 DR. AGUILAR AT BEDSIDE
--- NOTE | 2022-05-30 14:17 | PC.NURSE ---
pt reports she is breast feeding, spoke with pharmacy, owen states pt should pump and dump for 24 hours after receiving medications.
--- NOTE | 2022-05-30 14:38 | PC.NURSE ---
DR AGUILAR AT BEDSIDE TO REEVALUATE PT
[2022-05-30 15:00] VITALS: BP 136/74; PULSE 90; RESP 17; TEMP 36.7; O2SAT 99
== END 2022-05-30 15:00 | disposition home or self-care (01) ==
LOC: UTC 13:06 → ER 13:40
PROVIDERS: Emergency Provider Nurse Practitioner Family; PCP Physician Assistant
DX: G43.909 Migraine, unspecified, not intractable, without status migrainosus (principal); F90.9 Attention-deficit hyperactivity disorder, unspecified type; F41.1 Generalized anxiety disorder; G56.00 Carpal tunnel syndrome, unspecified upper limb; Z81.1 Family history of alcohol abuse and dependence; Z80.9 Family history of malignant neoplasm, unspecified; Z82.49 Family history of ischemic heart disease and other diseases of the circulatory system; Z83.3 Family history of diabetes mellitus; Z81.4 Family history of other substance abuse and dependence; Z83.1 Family history of other infectious and parasitic diseases
CPT/HCPCS: 96361; 96374; 96375; 99284

== ENCOUNTER → 2022-09-28 10:45 | Outpatient (CLI) | payer OTHER, SELFPAY ==
[2022-09-28 12:39] LABS: HCG,Quantitative 169 mIU/ml (0-5.42)
[2022-09-29 08:39] LABS: Progesterone 5.1 ng/mL (.)
== END ==
PROVIDERS: PCP Physician Assistant; Visit Provider Nurse Practitioner Obstetrics & Gynecology
DX: N92.6 Irregular menstruation, unspecified (principal); Z32.00 Encounter for pregnancy test, result unknown
CPT/HCPCS: 36415; 84144; 84702

== ENCOUNTER → 2022-10-03 09:50 | Outpatient (CLI) | payer OTHER, SELFPAY ==
[2022-10-03 11:28] LABS: HCG,Quantitative 1539 mIU/ml (0-5.42)
== END ==
PROVIDERS: PCP Physician Assistant; Visit Provider Nurse Practitioner Obstetrics & Gynecology
DX: N92.6 Irregular menstruation, unspecified (principal); Z32.00 Encounter for pregnancy test, result unknown
CPT/HCPCS: 36415; 84702

== ENCOUNTER → 2022-10-17 12:00 | Outpatient (CLI) | payer OTHER, SELFPAY | PROVIDERS: Visit Provider Nurse Practitioner Obstetrics & Gynecology | DX: Z34.91 Encounter for supervision of normal pregnancy, unspecified, first trimester (principal); Z3A.01 Less than 8 weeks gestation of pregnancy | CPT/HCPCS: 87086 ==

== ENCOUNTER → 2022-10-27 10:03 | Outpatient (CLI) | payer OTHER, SELFPAY ==
--- NOTE | 2022-10-27 10:03 | US_ITS ---
PROCEDURE: US OB <= 14 WEEKS FETUS CLINICAL INDICATION: for dates COMPARISON: No exams were available for comparison FINDINGS: From her last menstrual period she is 8weeks 6days. An intrauterine gestational sac is present with a pole with a crown-rump length of 2.02cm correlating to gestational age of 8weeks 5days. heart tones are present with an FHR of 174bpm. Yolk sac is noted. Amnion appears normal. The yolk sac measures 6mm. There is a small subchorionic hemorrhage approximately 1.5 cm in size adjacent to the gestational sac. The right ovary is seen and appears normal. There are several follicles. The left ovary is seen and appears normal. There are several follicles. There is no fluid in the cul-de-sac. IMPRESSION: 1. Viable fetus within the uterine cavity. heart rate activity is seen. 2. Estimated due date by ultrasound is 06/03/2023. This correlates well with her last menstrual period. 3. Both ovaries are seen and appear normal. Dictated by: Sheldon Gill MD 10/27/2022 11:29 Sheldon Gill MD in [place] 10/27/2022 11:29
[2022-10-27 11:40] LABS: Basophils % 0.2 % (0.1-2.0); Eosinophils # 0.2 K/mm3 (0.0-0.4); Eosinophils % 1.9 % (0.1-12.0); Hematocrit 39.5 % (37.0-47.0); Hemoglobin 12.9 g/dL (12.2-16.2); Lymphocytes # 1.4 K/mm3 (0.7-4.5); Lymphocytes % 16.1 % (10-50); Mean Corpuscular HGB Conc 32.7 g/dL (31.8-35.4); Mean Corpuscular Hemoglobin 27.2 pg (27.0-31.2); Mean Corpuscular Volume 83.2 fl (81-99); Mean Platelet Volume 7.7 fl (7.4-10.4); Monocytes # 0.4 K/mm3 (0.1-1.0); Monocytes % 4.1 % (1.7-9.3); Neutrophils # 6.6 K/mm3 (1.8-7.8); Neutrophils % 77.7 % (37.0-80.0); Platelet Count 277 K/mm3 (142-424); Red Blood Count 4.75 M/mm3 (4.20-5.40); Red Cell Distribution Width 13.4 % (11.5-17.5); White Blood Count 8.5 K/mm3 (4.8-10.8)
[2022-10-28 14:28] LABS: HIV Screen 4th Generation wRfx Non Reactive (Non Reactive); HSV 1 IgG, Type Spec <0.91 index (0.00-0.90); HSV 2 IgG, Type Spec <0.91 index (0.00-0.90); Rubella Antibodies, IgG 2.28 index (Immune >0.99)
[2022-12-05 12:42] LABS: Hepatitis B Surface Antigen Negative; Hepatitis C Antibody Non Reactive
[2022-12-05 12:43] LABS: Rapid Plasma Reagin Ab Titer Non Reactive
== END ==
PROVIDERS: PCP Physician Assistant; Visit Provider Nurse Practitioner Obstetrics & Gynecology
DX: Z34.91 Encounter for supervision of normal pregnancy, unspecified, first trimester (principal); Z3A.08 8 weeks gestation of pregnancy
CPT/HCPCS: 36415; 76801; 85025; 86593; 86695; 86703; 86762; 86790; 86850; 87340; 87380; G0432

== ENCOUNTER → 2023-01-16 07:51 | Outpatient (CLI) | payer OTHER, SELFPAY ==
--- NOTE | 2023-01-16 07:52 | US_ITS ---
PROCEDURE: US OB /MATERNAL DETAIL CLINICAL INDICATION: 20 week anatomy scan COMPARISON: US US OB <= 14 WEEKS FETUS from 10/27/2022 FINDINGS: Transabdominal sonographic images of the uterus were obtained. From her established due date she is 20 weeks 3 days. Single viable intrauterine gestation. Breech position. Placenta: Anteriorplacenta grade 1. Appears low lying. There is an average amount fluid. The cervix appears satisfactory. Closed and measuring 4.0 cm in length. Complete survey performed and was unremarkable on the submitted images as in PACS. No discrete anomalies identified on survey imaging by technologist. Active fetus. Three-vessel cord with satisfactory umbilical cord insertion. 4- chamber heart noted. Aortic arch, RVOT, LVOT appears normal. Incomplete scan. Survey of brain & ventricles Unremarkable. Choroid plexus, thalamus, cerebellum, cisterna magna appear normal. Face and neck survey unremarkable. Profile, nasion, nose and lips appear normal. Diaphragm and chest views unremarkable. Abdomen: Both kidneys noted and unremarkable. Stomach and bladder noted and satisfactory. Spine: Survey of the spine satisfactory with no anomalies identified nor imaged. Upper, thoracic and lower spine appears normal. Both arms and legs noted. Amniotic Fluid: Adequate. Measurements: Average ultrasound age 19weeks 4days. Gestational Age 19weeks 4days Estimated due date by ultrasound age 0206/08/2023. Estimated weight 307g BPD = 19weeks 2days HC = 19weeks 2days AC = 19weeks 6days FL = 19weeks 6days Growth Percentile= 13 Heart Rate = 155bpm Cerebellum = 20weeks 4days Humerus = 21weeks 3days HC/AC is 1.14 FL/BPD is 0.72 FL/AC is 0.22 IMPRESSION: 1. Viable fetus in the breech presentation with an anterior placenta. The placenta appears low lying. 2. Anatomical scan appears normal. 3. biometry consistent with dates. 4. Cardiac scan was incomplete due to position. 5. Suggest repeat scan in 2 weeks along with transvaginal scan to confirm position of placenta. Dictated by: Sheldon Gill MD 01/16/2023 16:11 Sheldon Gill MD in [facility] 01/16/2023 16:11
== END ==
PROVIDERS: PCP Physician Assistant; Visit Provider Nurse Practitioner Obstetrics & Gynecology
DX: Z34.92 Encounter for supervision of normal pregnancy, unspecified, second trimester (principal); Z3A.20 20 weeks gestation of pregnancy
CPT/HCPCS: 76811

== ENCOUNTER → 2023-01-30 09:30 | Outpatient (CLI) | payer OTHER, SELFPAY ==
--- NOTE | 2023-01-30 09:30 | US_ITS ---
PROCEDURE: US OB FOLLOW UP CLINICAL INDICATION: Re-check heart and Placenta placement COMPARISON: US US OB /MATERNAL DETAIL from 01/16/2023 FINDINGS: Transabdominal sonographic images of the pelvis were obtained. The following parameters are obtained: From her established due date she is 22weeks 3days Viable fetus in the breech presentation with an anterior placenta grade 1. The cervix is 2.1 centimeters away from the internal cervical os. The cervix measures 3.5 cm. heart rate: 146bpm bpm. No obvious anomalies evident. profile seen, nasion, stomach, cord insertion appear normal. Subjectively the fluid appears normal. Heart: Four chamber heart, situs, LVOT, three-vessel view appear normal. IMPRESSION: 1. Viable fetus in the breech presentation with an anterior placenta grade 1. 2. The fluid appears to be within normal limits. 3. The cervix is 2.1 cm from the internal cervical os. 4. Cardiac anatomy appears normal. Dictated by: Sheldon Gill MD 01/30/2023 12:30 Sheldon Gill MD in [facility] 01/30/2023 12:30
== END ==
PROVIDERS: PCP Physician Assistant; Visit Provider Nurse Practitioner Obstetrics & Gynecology
DX: Z36.2 Encounter for other antenatal screening follow-up (principal); Z3A.22 22 weeks gestation of pregnancy
CPT/HCPCS: 76816

== ENCOUNTER → 2023-03-01 08:56 | Outpatient (CLI) | payer OTHER, SELFPAY ==
[2023-03-01 09:18] LABS: Basophils % 0.3 % (0.1-2.0); Eosinophils # 0.2 K/mm3 (0.0-0.4); Eosinophils % 3.3 % (0.1-12.0); Lymphocytes # 1.5 K/mm3 (0.7-4.5); Mean Corpuscular HGB Conc 34.3 g/dL (31.8-35.4); Mean Corpuscular Hemoglobin 30.8 pg (27.0-31.2); Mean Corpuscular Volume 89.8 fl (81-99); Mean Platelet Volume 8.7 fl (7.4-10.4); Monocytes # 0.3 K/mm3 (0.1-1.0); Monocytes % 3.9 % (1.7-9.3); Neutrophils # 5.3 K/mm3 (1.8-7.8); Neutrophils % 72.5 % (37.0-80.0); Platelet Count 204 K/mm3 (142-424); Red Blood Count 3.89 M/mm3 (4.20-5.40); Red Cell Distribution Width 13.4 % (11.5-17.5); White Blood Count 7.3 K/mm3 (4.8-10.8)
[2023-03-01 09:29] LABS: Glucose,Fasting 82 mg/dl (74-100)
[2023-03-01 10:50] LABS: Glucose 1 Hour 93 mg/dL (74-100)
== END ==
PROVIDERS: PCP Physician Assistant; Visit Provider Nurse Practitioner Obstetrics & Gynecology
DX: Z34.92 Encounter for supervision of normal pregnancy, unspecified, second trimester (principal); Z3A.26 26 weeks gestation of pregnancy
CPT/HCPCS: 36415; 82951; 85025

== ENCOUNTER 2023-04-26 12:45 | Outpatient (CLI) | payer BC, SELFPAY ==
--- NOTE | 2023-04-26 13:18 | US_ITS ---
PROCEDURE: US OB BIOPHYSICAL PROFILE CLINICAL INDICATION: sga COMPARISON: FINDINGS: Transabdominal sonographic images of the uterus were obtained. From her established due date she is 34weeks 5days. The following parameters are obtained: Viable fetus in the cephalic presentation with an anterior placenta grade 2 Average ultrasound age is 34weeks. Estimated due date by ultrasound is 06/07/2023. Estimated weight is 5lb 1oz ,2306 grams. Cervix measures 4.9 cm heart rate: Rate not recorded but heart tones are seen on the cine view BPD: 33weeks 0 days OFD: 33weeks 0 days HC: 33 weeks 4 days AC: 33 weeks 6 days FL: 34 weeks 4 days HC/AC: 1.01 Cephalic index: 0.8 FL/BPD: 0.79 FL/AC: 0.22 24 percentile Amniotic fluid index: 13.87cm, MVP 4.69 cm. Qualitative AFV: 2 breathing movements: 2 Gross body movements: 2 Tone: 2 Biophysical profile score: 8 No obvious anomalies evident.Kidneys, diaphragm, stomach, bladder, three-vessel cord appear normal. IMPRESSION: 1. Viable fetus in the cephalic presentation with an anterior placenta grade 2. 2. The fluid is within normal limits. Amniotic fluid index 13.87 cm, MCV 4.69 cm. 3. Biophysical profile 11/29 with good breathing movement seen and good movement seen. 4. There has been good interval growth with the fetus currently 24th percentile. Dictated by: Sheldon Gill MD 04/26/2023 14:39 Sheldon Gill MD in [place] 04/26/2023 14:39
== END 2023-04-26 23:59 ==
LOC: RAD 12:46
PROVIDERS: PCP Physician Assistant; Visit Provider Obstetrics & Gynecology
DX: O36.5930 Maternal care for other known or suspected poor fetal growth, third trimester, not applicable or unspecified (principal); Z3A.34 34 weeks gestation of pregnancy
CPT/HCPCS: 76816; 76819

== ENCOUNTER 2023-05-10 16:45 | Outpatient (CLI) | payer BC, SELFPAY | END 2023-05-10 23:59 | LOC: LAB.DROPOF 16:52 | PROVIDERS: PCP Nurse Practitioner Obstetrics & Gynecology; Visit Provider Nurse Practitioner Obstetrics & Gynecology | DX: Z34.93 Encounter for supervision of normal pregnancy, unspecified, third trimester (principal); Z3A.36 36 weeks gestation of pregnancy | CPT/HCPCS: 86403 ==

== ENCOUNTER 2023-05-20 00:42 | Outpatient (CLI) | payer BC, SELFPAY ==
[2023-05-20 00:55] VITALS: BMI 37.8
[2023-05-20 01:16] LABS: Microscopic, Urine URINE MICROSCOPIC (MICROSCOPIC)
[2023-05-20 01:18] LABS: Appearance,Urine SL CLOUDY (Clear); Bilirubin,Urine 1+ (Negative); Blood, Urine Negative (Negative); Color,Urine YELLOW (Yellow); Glucose,Urine (UA) Negative (Negative); Ketones,Urine Negative (Negative); Leukocyte Esterase,Urine 1+ (Negative); Nitrate,Urine Negative (Negative); Protein,Urine Negative (Negative); Specific Gravity, Urine >= 1.030 (1.005-1.030)
[2023-05-20 01:29] LABS: Amphetamine/Metha Screen,Urine Negative ng/ml (<1000); Bacteria,Urine 1+ /lpf; Mucus,Urine Trace /lpf
[2023-05-20 01:30] LABS: Barbiturates Screen,Urine Negative ng/ml (<200)
[2023-05-20 01:43] LABS: Benzodiazepines Screen,Urine Negative ng/ml (<200); Cannabinoid Screen,Urine Negative ng/ml (<50)
[2023-05-20 01:44] LABS: Cocaine Screen,Urine Negative ng/ml (<300)
[2023-05-20 01:45] LABS: Methadone Screen,Urine Negative ng/ml (<300)
[2023-05-20 01:46] LABS: Opiate Screen,Urine Negative ng/ml (<300); Phencyclidine Screen,Urine Negative ng/ml (<25)
[2023-05-20 01:50] VITALS: BP 118/77; PULSE 100; RESP 18; TEMP 36.5; O2SAT 99; BMI 37.8
== END 2023-05-20 02:00 | disposition home or self-care (01) ==
LOC: OBOUT 00:44 → OB 00:45
PROVIDERS: PCP Physician Assistant; Visit Provider Obstetrics & Gynecology
DX: O26.893 Other specified pregnancy related conditions, third trimester (principal); Z3A.38 38 weeks gestation of pregnancy
CPT/HCPCS: 59025; 80307; 81001; 87086; G0463

== ENCOUNTER 2023-05-28 16:52 | Inpatient (IN) | payer BC, SELFPAY ==
[2023-05-28 17:09] VITALS: BP 133/84; PULSE 92; RESP 16; TEMP 36.9; O2SAT 99; BMI 38.4
[2023-05-28 17:51] LABS: Basophils % 0.4 % (0.1-2.0); Eosinophils # 0.1 K/mm3 (0.0-0.4); Eosinophils % 1.4 % (0.1-12.0); Hematocrit 34.7 % (37.0-47.0); Hemoglobin 11.7 g/dL (12.2-16.2); Lymphocytes # 0.9 K/mm3 (0.7-4.5); Lymphocytes % 11.2 % (10-50); Mean Corpuscular HGB Conc 33.7 g/dL (31.8-35.4); Mean Corpuscular Hemoglobin 28.8 pg (27.0-31.2); Mean Corpuscular Volume 85.6 fl (81-99); Mean Platelet Volume 8.9 fl (7.4-10.4); Monocytes # 0.7 K/mm3 (0.1-1.0); Monocytes % 8.2 % (1.7-9.3); Neutrophils # 6.2 K/mm3 (1.8-7.8); Neutrophils % 78.8 % (37.0-80.0); Platelet Count 281 K/mm3 (142-424); Red Blood Count 4.05 M/mm3 (4.20-5.40); Red Cell Distribution Width 13.4 % (11.5-17.5); White Blood Count 7.9 K/mm3 (4.8-10.8)
[2023-05-28] MEDS: miSOPROStol 100MCG TABLET 25 MCG PO ×2 (18:01→21:51)
[2023-05-29] MEDS: miSOPROStol 100MCG TABLET 25 MCG PO (04:36)
[2023-05-29] MEDS: ONDANSETRON 4MG/2ML VIAL 4 MG IV (05:08)
--- NOTE | 2023-05-29 07:34 | HMH.PHAINT1 ---
Pharmacy Intervention Comments: MEDICATION RECONCILIATION COMPLETED ON PATIENT USING EXTERNAL FILL HISTORY FROM PHARMACY. -ALEX BANEGAS, NICHOLASD
[2023-05-29 08:00] VITALS: BP 130/70; PULSE 95; RESP 16; TEMP 36.9; O2SAT 99
--- NOTE | 2023-05-29 08:29 | EXP.LABOR.NO ---
Labor Note Subjective: Date: 05/29/23 Time: 08:20 regular contraction Objective: NST:: Reactive Contractions:: every 2-3 minutes Cervical Dilation:: 4-5 Effacement:: 75% Membranes: artificially ruptured Comment:: I ruptured her membranes and there was clear fluid. Fetus: Monitoring?: Yes monitoring type:: External Assessment: Labor progressing?: Yes Cephalopelvic disproportion?: No Plan: Anesthesia for epidural?: No Continue to labor down?: Yes Plan for ?: No Continue to monitor?: Yes Start pushing?: No Comment:: She is shun regularly. Her cervix is soft and nonstress test is reactive. She is shun every 2 to 3 minutes. We will expect a vaginal delivery.
--- NOTE | 2023-05-29 08:31 | EXP.HP ---
History of Present Illness *Admission Date: 05/28/23 *Reason for visit:: Term , *History of present illness: She is a 28-year-old 9 para 4 aborta 4 who is 39 weeks gestational age. She was feeling uncomfortable and having irregular contractions. She elected to have induction of labor. AB+ blood Rubella immune Group B streptococcus negative PFSH PFS Disclaimer: The information contained in this section may have been updated after the patient was seen, as this information can be updated by other users. Medical History Acute carpal tunnel syndrome Attention deficit disorder (ADD) in adult Generalized anxiety disorder Surgical History History of tonsillectomy Family History Tuberculosis Substance abuse Diabetes Coronary artery disease Alcoholism Cancer Hypertension Social History Smoking Status: Never smoker alcohol intake: never substance use type: denies use current occupational status: unemployed Travel in the last 8 weeks: None number of children: 4 Review of Systems Review of Systems Review of systems:: pertinent systems reviewed and negative unless documented below Meds Home Medications and Allergies Home Medications Medication Instructions Recorded Confirmed Type prenat.vits,jing,mqw-wpos-yiwuh 1 tab PO DAILY #30 tabs 12/07/21 05/24/23 Rx albuterol sulfate 90 mcg/actuation 2 puff inhalation Q4HP PRN 05/02/23 05/29/23 History aerosol inhaler Shortness Of Breath vit no.95-ferrous 1 tab PO DAILY Supplement 05/29/23 05/29/23 History fumarate 28 mg-folic acid 800 mcg tablet () New Prescriptions to Start Prescriptions: Allergies Allergy/AdvReac Type Severity Reaction Status Date / Time No Known Allergies Allergy Verified 05/24/23 09:53 Exam Data for Last 24 hours Vital signs and Labs for Last 24 Hours: Temp Pulse Resp BP Pulse Ox O2 Del Method 98.4 F 92 H 16 133/84 99 Room Air 05/28/23 17:09 05/28/23 17:09 05/28/23 17:09 05/28/23 17:09 05/28/23 17:09 05/28/23 17:09 Laboratory Results - last 24 hr 05/28/23 17:25: WBC 7.9, RBC 4.05 L, Hgb 11.7 L, Hct 34.7 L, MCV 85.6, MCH 28.8, MCHC 33.7, RDW 13.4, Plt Count 281, MPV 8.9, Neut % (Auto) 78.8, Lymph % (Auto) 11.2, [place] % (Auto) 8.2, Eos % (Auto) 1.4, Baso % (Auto) 0.4, Neut # (Auto) 6.2, Lymph # (Auto) 0.9, [place] # (Auto) 0.7, Eos # (Auto) 0.1, Baso # (Auto) 0.0, Blood Type AB Positive, Antibody Screen Negative, Crossmatch (AHG) See Detail I & O for Last 24 hours: Intake & Output 05/26/23 05/27/23 05/28/23 05/29/23 11:59 11:59 11:59 11:59 Weight 210 lb Constitutional Constitutional: no acute distress *Routine HEENT Exam Head: Present normocephalic Eye: Present EOMI and PERRL ENT: Present mucous membranes moist *Routine Neck Exam Neck: Present supple; Absent lymphadenopathy *Routine Respiratory Exam Respiratory: Present CTA bilaterally *Routine Cardiovascular Exam Cardiovascular: Present RRR *Routine Abdominal Exam Abdominal: Present soft and normoactive bowel sounds; Absent tenderness *Routine Rectal Exam Rectal:: deferred *Routine Genitalia Exam Genitalia:: deferred *Routine Extremities Exam Extremities: Absent cyanosis, clubbing or edema *Routine Skin Exam Skin: Present warm; Absent rash *Routine Neurological Exam Neurological: Present alert and oriented X3 Assessment and Plan *Assessment and plan (1) Normal delivery: Status: Resolved Category: Medical Code(s): O80 - Encounter for full-term uncomplicated delivery Plan She is 39 weeks gestational age having regular contractions. I have ruptured her membranes and there was clear fluid. We will expect a vaginal delivery.
[2023-05-29] MEDS: BUTORPHANOL TARTRATE 1 MG/ML VIAL IV (09:51)
--- NOTE | 2023-05-29 10:13 | EXP.LABOR.NO ---
Labor Note Subjective: Date: 05/29/23 Time: 10:13 regular contraction Objective: NST:: Reactive Contractions:: every 2-3 minutes Cervical Dilation:: 7 Effacement:: 90% Station: 0 Membranes: artificially ruptured Fetus: Monitoring?: Yes monitoring type:: External Assessment: Labor progressing?: Yes Cephalopelvic disproportion?: No Plan: Anesthesia for epidural?: No Continue to labor down?: Yes Plan for ?: No Continue to monitor?: Yes Start pushing?: No Comment:: She continues to do well. The baby's head is come down and she is now 7 cm dilated. We will expect a vaginal delivery.
[2023-05-29] MEDS: OXYTOCIN/RINGERS LACTATE 30 UNITS/500 ML BAG 40 UNITS IV (10:46)
--- NOTE | 2023-05-29 11:29 | P.PCN_ITS ---
Delivery Note Delivery Date:: 05/29/23 Delivery Time:: 10:42 Anesthesia Type: None Was labor medically induced?: Yes Induction method: per misoprostol protocol Gestational age (weeks): 39 delivered prior to 39 weeks?: No Justification for early elective delivery:: Other Infant Gender: Male at 1 minute: 7 at 5 minutes: 9 Delivery Procedure:: She is a 28-year-old 9 para 4 aborta 4 who is 39+ weeks gestational age. She was feeling very uncomfortable and having lots of uterine activity. As result of that we elected to induce her labor at term. She was admitted on the evening of May 28, 2023 and given oral Cytotec. She received 3 doses of Cytotec and was found to be 4 cm dilated this morning. She had her membranes ruptured and there was clear fluid. She progressed to full dilation and delivered spontaneously a liveborn male child at 10:42 AM on the morning of May 29, 2023. On deliver the head the anterior shoulder then easily delivered followed by the rest of the infant's body atraumatically. The oropharynx and nasopharynx were bulb suction. The baby was vigorous. We allowed the cord to continue to pulsate for approximately 1 minute. The cord was then doubly clamped and cut and the was placed on the mother's abdomen for further care. The nurses assigned Apgars of 7 at 1 minute and 9 at 5 minutes. We then obtained cord blood. She received IV oxytocin and using gentle traction on the cord and cou ntertraction the fundus the placenta easily delivered intact 2 minutes after delivery. He had a normal three-vessel cord. There were no perineal or vaginal lacerations. She has AB+ blood, she is rubella immune and was group B streptococcus negative. She plans to bottlefeed. Estimated blood loss was approximately 150 cc. Placental Delivery Description: Spontaneous
[2023-05-30 06:18] LABS: Hematocrit 30.2 % (37.0-47.0); Hemoglobin 10.3 g/dL (12.2-16.2)
--- NOTE | 2023-05-30 07:44 | EXP.ACUTE.PN ---
Subjective *Date: 05/30/23 *Time: 07:44 Interval history: She is 1 day from a vaginal delivery. She is doing well. Her lochia is normal. She is breast-feeding. Medical Exam Vital signs and Labs for Last 24 Hours: Laboratory Results - last 24 hr 05/30/23 05:18: Hgb 10.3 L, Hct 30.2 L I & O for Labs for Last 24 Hours: Intake & Output 05/27/23 05/28/23 05/29/23 05/30/23 11:59 11:59 11:59 11:59 Weight 210 lb Head: Present normocephalic Neck: Present normal inspection Respiratory: Present normal respiratory effort; Absent accessory muscle use Assessment and Plan *Assessment and plan (1) Normal delivery at term: Status: Resolved Category: Medical Code(s): O80 - Encounter for full-term uncomplicated delivery Plan She is doing very well 1 day post . She is breast-feeding. We will plan to send her home tomorrow.
[2023-05-30] MEDS: SENNA 8.6MG TABLET 8.59999999999999964 MG PO (09:30)
[2023-05-30 21:00] VITALS: BP 121/71; PULSE 91; RESP 17; TEMP 36.6; O2SAT 98
--- NOTE | 2023-05-31 08:39 | P.DS_ITS ---
General Admission date:: 05/28/23 Discharge date: 05/31/23 HPI HPI HPI: She is a 28-year-old 9 para 4 aborta 4 who is 39 weeks gestational age. She was feeling uncomfortable and having irregular contractions. She elected to have induction of labor. AB+ blood Rubella immune Group B streptococcus negative Hospital Course Hospital Course Hospital Course: She was admitted the evening of May 28, 2023. She received 3 doses of Cytotec overnight. She subsequently had her membranes ruptured and progressed to full dilation. She delivered spontaneously a liveborn male child at 10:42 AM on the morning of May 29, 2023. The baby weighed 7 pounds 10 ounces and was 19 inches long. He had Apgars of 7 at 1 minute and 9 at 5 minutes. She had no perineal or vaginal lacerations. She has done well and has remained afebrile without her hospitalization. She is eating and drinking and ambulating. She is bottlefeeding. Her lochia is normal. She has AB+ blood, she is rubella immune and was group B streptococcus negative. Her district manager primary care sales is Dr. Nj. She will be discharged home today to follow-up with me in approximately 2 weeks time. She will continue with her vitamins. She is taking ezbf-lvt-ejvnjcb analgesics. She was given the usual instructions with respect to limiting her activity, driving and sexual activity. Her condition on discharge is stable and improved. Exam Data for Last 24 hours Vital signs and Labs for Last 24 Hours: Temp Pulse Resp BP Pulse Ox O2 Del Method 98 F 91 H 17 121/71 98 Room Air 05/30/23 21:00 05/30/23 21:00 05/30/23 21:00 05/30/23 21:00 05/30/23 21:00 05/30/23 21:00 I & O for Last 24 hours: Intake & Output 05/28/23 05/29/23 05/30/23 05/31/23 11:59 11:59 11:59 11:59 Weight 210 lb Constitutional Constitutional: no acute distress *Routine HEENT Exam Head: Present normocephalic *Routine Neck Exam Neck: Present full ROM *Routine Respiratory Exam Respiratory: Present normal respiratory effort; Absent accessory muscle use DS: Diagnosis Discharge Diagnosis (1) Normal delivery at term: Status: Resolved Code(s): O80 - Encounter for full-term uncomplicated delivery Meds Home Medications and Allergies Home Medications Medication Instructions Recorded Confirmed Type prenat.vits,jing,kyj-egqk-omvqb 1 tab PO DAILY #30 tabs 12/07/21 05/24/23 Rx albuterol sulfate 90 mcg/actuation 2 puff inhalation Q4HP PRN 05/02/23 05/29/23 History aerosol inhaler Shortness Of Breath vit no.95-ferrous 1 tab PO DAILY Supplement 05/29/23 05/29/23 History fumarate 28 mg-folic acid 800 mcg tablet () New Prescriptions to Start Prescriptions: Allergies Allergy/AdvReac Type Severity Reaction Status Date / Time No Known Allergies Allergy Verified 05/24/23 09:53 Discharge Plan Disposition Patient Disposition: Home, Self-Care Discharge Order Discharge Orders: Discharge Order (Routine); Ordered 05/31/23 Ordered By: Sheldon Gill Follow up Plan Follow up with: Sheldon Gill MD [Staff Physician] - 06/12/23 3:00 pm Prescriptions/Medication Reconciliation: Continued albuterol sulfate 90 mcg/actuation HFA aerosol inhaler 2 puff inhalation Q4HP PRN (Reason: Shortness Of Breath) prenat.vits,jing,yve-jhtl-mptwp Tablet 1 tab PO DAILY Qty: 30 11RF PNV cmb#95-ferrous fumarate-FA [] 28 mg iron- 800 mcg Tablet 1 tab PO DAILY Problem Reconciliation Problems Reviewed?: Yes Patient Discharge Instructions ACTIVITY: No heavy lifting DIET: continue same diet Additional Instructions: Nothing in the vagina for 6 weeks. No heavy lifting. No strenuous activity. Patient Instructions: Depression, Hemorrhage, DI for Labor and Delivery, Vaginal , DI for Pre-eclampsia, [facility] Post Discharge Instructions Providers Primary Care Provider: Pallavi Slater Admit Provider: Parisa King Attending Provider: Parisa King
== END 2023-05-31 14:50 | disposition home or self-care (01) | DRG 807 ==
PROVIDERS: Nurse Practitioner Obstetrics & Gynecology; Admitting Provider Obstetrics & Gynecology; PCP Physician Assistant; Visit Provider Obstetrics & Gynecology
DX: O80 Encounter for full-term uncomplicated delivery (principal); Z37.0 Single live birth; Z3A.39 39 weeks gestation of pregnancy
CPT/HCPCS: 59409; 36415; 59025; 85014; 85018; 85025; 86850; J0595; J2405